=== PATIENT | male | born 1995 | race Asian ===

== ENCOUNTER 2018-01-11 10:38 | Emergency (ER) | payer OTHER ==
[~2018-01-11] VITALS: Ht 175.3 cm; Wt 57.6 kg
[2018-01-11 10:44] VITALS: BP 128/83
--- NOTE | 2018-01-11 10:50 | NUR ---
PT AMBULATES TO BED 5
--- NOTE | 2018-01-11 10:51 | NUR ---
DR TAPIA EVALUATING AT BEDSIDE
[2018-01-11] MEDS ORDERED: METOCLOPRAMIDE 10 MG/2 ML INJ VIAL IVP ONE (11:00)
[2018-01-11] MEDS ORDERED: KETOROLAC 30 MG/ML VIAL IVP ONE (11:00)
--- NOTE | 2018-01-11 11:07 | NUR ---
PT TAKEN TO CT IN WHEELCHAIR
[2018-01-11 11:19] LABS: BASOPHILS % (AUTO) 0.2 % (0.0-2.0); EOSINOPHILS % (AUTO) 0.2 % (0.0-4.0); HEMATOCRIT 49.4 % (36-52); HEMOGLOBIN 16.7 g/dL (12.0-18.0); LYMPHOCYTES # (AUTO) 1.1 K/uL (2.0-11.5); LYMPHOCYTES % (AUTO) 6.8 % (20.5-51.1); MEAN CORPUSCULAR HEMOGLOBIN 32 pg (27-31); MEAN CORPUSCULAR HGB CONC 34 g/dL (33-37); MEAN CORPUSCULAR VOLUME 93.5 fL (80-94); MONOCYTES # (AUTO) 0.7 K/uL (0.8-1.0); MONOCYTES % (AUTO) 4.7 % (1.7-9.3); NEUTROPHILS % (AUTO) 88.1 % (42.2-75.2); PLATELET COUNT (AUTO) 255 K/uL (140-450); RED BLOOD CELL COUNT(AUTO) 5.28 MIL/uL (4.20-6.10); RED CELL DISTRIBUTION WIDTH 12.8 % (11.6-13.7); WHITE BLOOD COUNT (AUTO) 15.9 K/uL (4.8-10.8)
--- NOTE | 2018-01-11 11:20 | NUR ---
PT. CAME INTO THE ED W/ [employer]IC DUE TO RLQ PAIN X 1 DAY. PT. STATES " I HAVE HAD THE PAIN SINCE YESTERDAY BUT TODAY IT IS A LITTLE BETTER, I WAS NAUSEOUS , BUT NOW NOT SO MUCH, I DID HAVE DIAHRRHEA SINCE YESTERDAY BUT IT HAS GOTTEN BETTER". PT. AAO X4 , RR EVEN AND UNLABORED. DENIES VOMITING AND IS SLIGHTLY NAUSEOUS. PT. HAS FLAT AND SOFT ABD. [employer] MECH[employer]IC AT BEDSIDE, WILL CONTINUE TO MONITOR. Zo SIERRA NOTIFIED.
[2018-01-11 11:34] LABS: CARBON DIOXIDE 27.9 mmol/L (21-32); CREATININE 1.1 mg/dL (0.7-1.3); POTASSIUM 3.9 mmol/L (3.5-5.1)
[2018-01-11 11:42] LABS: ALBUMIN 4.6 g/dL (3.4-5.0); TOTAL BILIRUBIN 1.3 mg/dL (0.0-1.0)
[2018-01-11 12:26] LABS: APPEARANCE,URINE HAZY (CLEAR); BILIRUBIN,URINE 1+ (NEGATIVE); BLOOD, URINE 3+ (NEGATIVE); COLOR,URINE BROWN (YELLOW); LEUKOCYTE ESTERASE ,URINE NEGATIVE (NEGATIVE); NITRITE, URINE NEGATIVE (NEGATIVE); UGLUCOSE NEGATIVE (NEGATIVE)
[2018-01-11 12:44] LABS: RBC,URINE 80-100 /HPF (0-5)
[2018-01-11 12:45] LABS: WBC,URINE 0-5 (RARE) /HPF (0-5)
--- NOTE | 2018-01-11 12:51 | NUR ---
PT. IN BED RESTING COMFORTABLY 0/10 PAIN , RR EVEN AND UNLABORED, CASE OPERATOR AT BEDSIDE. WILL CONTINUE TO MONITOR.
[2018-01-11 13:00] VITALS: BP 124/80
--- NOTE | 2018-01-11 13:00 | NUR ---
Patient discharged with v/s stable. Written and verbal after care instructions given and explained. Patient alert, oriented and verbalized understanding of instructions. Ambulatory with steady gait. All questions addressed prior to discharge. ID band removed. Patient advised to follow up with PMD. Rx of NAPROSYN, FLOMAX, AND ZOFRAN given. Patient educated on indication of medication including possible reaction and side effects. Opportunity to ask questions provided and answered.
== END 2018-01-11 13:00 | disposition home or self-care (01) ==
LOC: MED 10:38
DX: N20.0 Calculus of kidney (principal)
CPT/HCPCS: 36415; 74176; 80053; 81001; 83690; 85025; 96374; 96375; 99285; J1885; J2765